=== PATIENT | male | born 1985 | race Two or more races ===

== ENCOUNTER 2025-02-13 12:23 | Outpatient (REF) | payer MEDICAID, SELFPAY ==
[2025-02-13 13:27] LABS: Hematocrit 43.4 % (42.0-52.0); Hemoglobin 14.6 g/dl (14.0-18.0); Mean Corpuscular HGB Conc 33.6 g/dl (31.0-36.0); Mean Corpuscular Hemoglobin 31.7 pg (27.0-33.0); Mean Corpuscular Volume 94.1 fL (80.0-98.0); Mean Platelet Volume 9.3 fL (9.4-12.4); Platelet Count 282 X10*3/uL (160-400); Red Blood Count 4.61 X10*6/uL (4.60-5.80); Red Cell Distribution Width 13.5 % (11.0-16.0); White Blood Count 9.3 X10*3/uL (4.8-10.8)
[2025-02-13 13:39] LABS: Estimated Average Glucose 114 mg/dL; Hemoglobin A1C 141.3339 umol/L; Hemoglobin A1c % 5.6 % (<6.0); Total Hemoglobin (HGBA1C) 3788.7087 umol/L
[2025-02-13 14:32] LABS: Alanine Aminotransferase 39 U/L (0-40); Albumin Level 4.6 g/dL (3.5-5.0); Anion Gap 10 (12-20); Aspartate Amino Transferase 38 U/L (5-37); Bilirubin Direct 0.1 mg/dL (0.0-0.5); Bilirubin Total 0.5 mg/dL (0.0-1.0); Blood Urea Nitrogen 8 mg/dL (9-16); Calcium 9.9 mg/dL (8.4-10.2); Carbon Dioxide 28 mmol/L (22-29); Chloride 105 mmol/L (96-108); Cholesterol 253 mg/dL (<200); Estimated Glomerular Filt Rate > 60; Glucose Random 88 mg/dL (60-115); HDL Cholesterol 48 mg/dL (>40); LDL Cholesterol Calculated 177 mg/dL (<100); Potassium 4.1 mmol/L (3.3-5.1); Sodium 139 mmol/L (135-145); Total Protein 7.9 g/dL (6.5-8.0); Triglycerides 142 mg/dL (<150)
[2025-02-13 14:42] LABS: Free T4 (Free Thyroxine) 0.96 ng/dL (0.71-1.85); Thyroid Stimulating Hormone 1.09 uIU/mL (0.32-4.0); Vitamin D 25-OH Total 14.5 ng/mL (>30)
--- OUTSIDE RECORDS SUMMARY | 2025-02-13 15:11 | XMS_ITS | Clinical Summary ---
Author Organization [facility] Address [address] [place] [address] [place] [address] Care Team Providers Care Collision Technician Name Role Phone Unavailable Primary Care Provider Unavailabl e Allergies No known active allergies Encounters Date Type Department Care Team Description 02/13/2025 10:45 AM EDT Office Visit [facility] [address] [place] [phone] Carlee Cormier DO Routine history and physical examination of adult (Primary Dx); Encounter for immunization 02/13/2025 Travel 02/02/2025 Patient Outreach [facility] [address] [place] [phone] Carlee Cormier DO Pre-visit Planning (SDOH screening negative and tobacco screening negative) 01/12/[address] [facility] ([facility]) Department [address] [place] [address] [phone] Provider, Population Health Generic 12/13/2024 Telephone [facility] [address] [place] [phone] Felice Devlin MD New Patient from Last 3 Months Immunizations Name Administration Dates Next Due Pneumococcal Conjugate PCV 20 02/13/2025 Tdap 03/01/2023,11/09/2021 Family History Medical History Relation Name Comments Old age Maternal Grandfather Diabetes Mother Hypertension Mother No Known Problems Paternal Grandfather Relation Name Status Comments Maternal Grandfather Maternal Grandmother Mother Paternal Grandfather Social History Tobacco Use Types Packs/Day Years Used Date Smoking Tobacco: Every Day Cigarettes Tobacco Cessation:Ready to Q uit: No; Counseling Given: Not Answered Alcohol Use Standard Drinks/Week Comments Never 0 (1 standard drink = 0.6 oz pur e alcohol) Depression Answer Date Recorded Patient Health Questionnaire-9 Score 6 02/13/2025 Patient Health Questionnaire-9 Score 6 02/13/2025 Last PHQ-9: Questionnaire Data Not on file 0 02/13/2025 Housing Stability Answer Date Recorded What is your housing situati on today? I have housing 02/13/[address] you li ve. Do you have problems with any of the following? Mold;No or not working smoke detectors 02/13/2025 Food Insecurity Answer Date Recorded Within the past 12 months, y ou worried that your food would run out before you got money to buy more: Often true 02/13/2025 Within the past 12 months,th e food you bought just didn't last and you didn't have enough money to get more: Often true Transportation Answer Date Recorded In the past 12 months, has l ack of transportation kept you from medical appts, meetings, work or from getting things needed for daily living? No 02/02/2025 Utilities Answer Date Recorded In the past 12 months, has t he electric, gas, oil or water company threatened to shut off services in your home? Yes 02/13/2025 Depression Answer Date Recorded Patient Health Questionnaire-2 Score 1 02/13/2025 Internet Access Answer Date Recorded Internet Access Q1 Yes 02/13/2025 Internet Access Q2 I do not want or need it 01/30 Sex and Gender Information Value Date Recorded Sex Assigned at Male 01/10/2024 11:25 AM EDT Legal Sex Male 11:22 AM EDT Gender Identity Male 01/10/2024 11:25 AM EDT Sexual Orientation Straight 01/10/2024 11 :25 AM EDT Last Filed Vital Signs Vital Sign Reading Time Taken Comments Blood Pressure 138/70 02/13/2025 11:14 AM EDT Pulse 65 02/13/2025 11:14 AM EDT Temperature 37.1 ??C (98.7 ??F) 02/13/2025 11:14 AM E DT Respiratory Rate 19 02/13/2025 11:14 AM EDT Oxygen Saturation 98% 02/13/2025 11:14 AM EDT Inhaled Oxygen Concentration - - Weight 75.4 kg (166 lb 4 oz) 02/13/2025 11:14 AM EDT Height 175.3 cm (5' 9 ) 02/13/2025 11:14 AM EDT Body Mass Index 24.55 02/13/2025 11:14 AM EDT Plan of Treatment Health Maintenance Due Date Last Done Comments HIV Screening 1987 Family Planning (PISQ) 2002 Hepatitis C Screening 2005 Hepatitis B Vaccines (1 of 3 - 19+ 3-dose series) 2006 COVID-19 Vaccine (3 - 2023-2 5 season) 2024 10/29/2021, 10/08/2021 Influenza Vaccine (#1) 2024 Alcohol/Substance Use Screening 02/13/2026 02/13/2025 Depression Screening 02/13/2026 02/13/2025, 02/13/2025 SDOH Screening 02/13/2026 02/13/2025 Tobacco Screening 02/13/2026 02/13/2025 Lipid Panel 02/13/2030 02/13/2025 DTaP/Tdap/Td Vaccines (3 - T d or Tdap) 03/01/2033 03/01/2023, 11/09/2021 Zoster Vaccines (1 of 2) 2037 RSV Patients and Patients Aged 60 years or older (1 - 1-dose 75+ series) 2062 Pneumococcal Vaccine: Pediatrics (0 to 5 Years) and At-Risk Patients (6 to 49) Years) Completed 02/13/2025 HIB Vaccines Aged Out No longer eligi ble based on patient's age to complete this topic HPV Vaccines Aged Out No longer eligi ble based on patient's age to complete this topic Hepatitis A Vaccines Aged Out No long er eligible based on patient's age to complete this topic IPV Vaccines Aged Out No longer eligi ble based on patient's age to complete this topic Meningococcal Vaccine Aged Out No cristian casper eligible based on patient's age to complete this topic RSV under 20 months Aged Out No longe r eligible based on patient's age to complete this topic Rotavirus Vaccines Aged Out No longer eligible based on patient's age to complete this topic Procedures Procedure Name Priority Date/Time Associated Diagnosis Comments BASIC METABOLIC PANEL Routine 02/13/2025 12:26 PM EDT Routine history and physical examination of adult CBC Routine 02/13/2025 12:26 PM EDT Routine history and physical examination of adult HEMOGLOBIN A1C Routine 02/13/2025 12:26 PM EDT Routine history and physical examination of adult HEPATIC FUNCTION PANEL Routine 02/13/2025 12:26 PM EDT Routine history and physical examination of adult VITAMIN D,25-OH,TOTAL,IA Routine 02/13/2025 12:26 PM EDT Routine history and physical examination of adult TSH Routine 02/13/2025 12:26 PM EDT Routine history and physical examination of adult LIPID PANEL, STANDARD Routine 02/13/2025 12:26 PM EDT Routine history and physical examination of adult T4, FREE Routine 02/13/2025 12:26 PM EDT Routine history and physical examination of adult from Last 3 Months Results * (ABNORMAL) CBC (02/13/2025 12:26 PM EDT) White Blood Count 9.3 4.8 - 10.8 X10*3/uL [facility] Red Blood Count 4.61 4.60 - 5.80 X10*6/uL [facility] Hemoglobin 14.6 14.0 - 18.0 g/dl [facility] Hematocrit 43.4 42.0 - 52.0 % [facility] Mean Corpuscular Volume 94.1 80.0 - 98.0 fL [facility] Mean Corpuscular Hemoglobin 31.7 27.0 - 33.0 pg [facility] Mean Corpuscular HGB Conc 33.6 31.0 - 36.0 g/dl [facility] Red Cell Distribution Width 13.5 11.0 - 16.0 % [facility] Platelet Count 282 160 - 400 X10*3/uL [facility] Mean Platelet Volume 9.3(L) 9.4 - 12.4 fL [facility] NRBC Pct Auto 0.0 0.0 - 0.2 /100WBC [facility] NRBC Abs Auto 0.000 0.0 - 0.012 X10*3/uL [facility] Blood Venous blood specimen / Unknown 02/13/2025 12:26 PM EDT 02/13/2025 1:13 PM EDT us Carlee Genia DO LAB BLOOD ORDERABLES Final R esult Performing Organization Address City/[facility]/ZIP Co de Phone Number [facility] [address] [place] [address] [phone] * Hemoglobin A1c (02/13/2025 12:26 PM EDT) Hemoglobin A1c 5.6 <6.0 % [facility] Comment:Hemoglobin A1C Refer ence Range Adults: 4.8 - 6.0 % Non diabetic: < 6.0 % Goal: < 7.0 %Additional Action Suggested: > 8.0 %Note: Hemoglobin A1c results are invalid for patients with abnormal amounts of HbF. Blood transfusions may impact the HbA1c concentration in the patient sample. Estimated Average Glucose 114 mg/dL [facility] Comment:eAG = Estimated ave rage glucose which is %A1C expressed asaverage glucose, using the formula of the F9S-AywyuuxLwthfot Glucose study (ADAG), Diabetes Care, Vol.31,#8,Jun. 2007 Blood Venous blood specimen / Unknown 02/13/2025 12:26 PM EDT 02/13/2025 1:13 PM EDT us Carlee Cormier DO LAB BLOOD ORDERABLES Final R esult Performing Organization Address City/[facility]/ZIP Co de Phone Number [facility] [address] [place] [address] [phone] from Last [address] [place] [address] [employer]
--- OUTSIDE RECORDS SUMMARY | 2025-02-13 15:11 | XMS_ITS | Encounter Summary ---
Author Organization [employer] Address [address] [facility] [address] [place] [address] Care Team Providers Care Country Singer Name Role Phone Unavailable Primary Care Provider Unavailabl e Encounter Details Date Type Department Care Team (Latest Contact Info) Description 02/13/2025 Travel Social History Tobacco Use Types Packs/Day Years Used Date Smoking Tobacco: Every Day Cigarettes Alcohol Use Standard Drinks/Week Comments Never 0 [...] Orientation Straight 01/10/2024 11 :25 AM EDT documented as of this encounter Plan of Treatment Not on file documented as of this encounter Visit Diagnoses Not on filedocumented in this encounter Additional Health Concerns Assessment Noted Time PHQ-9 Depression Total Score: 6 02/14/20 25 1:52 PM EDT documented as of this encounter
--- OUTSIDE RECORDS SUMMARY | 2025-02-13 15:11 | XMS_ITS | Encounter Summary ---
Author Organization [employer] Address [address] [facility] [address] [place] [address] Care Team Providers Care Aged Or Disabled Care Worker Name Role Phone Unavailable Primary Care Provider Unavailabl e Encounter Details Date Type Department Care Team (Late st Contact Info) Description 02/13/2025 10:45 AM EDT Office Visit [facility] [address] [place], [place] [phone] Carlee Cormier DO [address] [place], [place] [phone] Routine history and physical examination of adult (Primary Dx); Encounter for immunization Social History Tobacco Use Types Packs/Day Years [...] AM EDT documented as of this encounter Last Filed Vital Signs Vital Sign Reading [...] Mass Index 24.55 02/13/2025 11:14 AM EDT documented in this encounter Plan of Treatment Pending Results Name Type Priority Associated Diagnoses Date /Time T4, Free Lab Routine Routine history and physical examination of adult 02/13/2025 12:26 PM EDT Lipid Panel, Standard Lab Routine Routine history and physical examination of adult 02/13/2025 12:26 PM EDT TSH Lab Routine Routine history and physical examination of adult 02/13/2025 12:26 PM EDT Vitamin D, 25-Hydroxy, Total, Immunoassay Lab Routine Routine history and physical examination of adult 02/13/2025 12:26 PM EDT Hepatic Function Panel Lab Routine Routine history and physical examination of adult 02/13/2025 12:26 PM EDT Basic Metabolic Panel Lab Routine Routine history and physical examination of adult 02/13/2025 12:26 PM EDT Scheduled Orders Name Type Priority Associated Diagnoses Orde r Schedule Hepatitis B surface antigen, EIA Lab Routine Routine history and physical examination of adult Expected: 02/13/2025 (Approximate), Expires: 02/13/2026 Chlamydia/N. Gonorrhoeae RNA, TMA, Urogenitial Microbiology Routine Routine history and physical examination of adult Ordered: 02/13/2025 HIV-1/2 Antigen and Antibodies, Fourth Generation, with Reflexes Lab Routine Routine history and physical examination of adult Expected: 02/13/2025 (Approximate), Expires: 02/13/2026 Hepatitis C Antibody with Reflex to HCV, RNA, Quantitative, Real-Time PCR Lab Routine Routine history and physical examination of adult Expected: 02/13/2025, Expires: 02/13/2026 RPR (Monitor) with Reflex to??Titer Lab Routine Routine history and physical examination of adult Expected: 02/13/2025, Expires: 02/13/2026 Hepatitis B Surface Antibody, Qualitative Lab Routine Routine history and physical examination of adult Expected: 02/13/2025 (Approximate), Expires: 02/13/2026 Hepatitis A Antibody, Total Lab Routine Routine history and physical examination of adult Expected: 02/13/2025 (Approximate), Expires: 02/13/2026 Hepatitis B Core Antibody, Total Lab Routine Routine history and physical examination of adult Expected: 02/13/2025 (Approximate), Expires: 02/13/2026 documented as of this encounter Procedures Procedure Name Priority Date/Time Associated Diagnosis Comments VITAMIN D,25-OH,TOTAL,IA Routine 02/13/2025 12:26 PM EDT [...] Routine history and physical examination of adult BASIC METABOLIC PANEL Routine 02/13/2025 12:26 PM EDT Routine history and physical examination of adult documented in this encounter Results * (ABNORMAL) CBC (02/13/2025 12:26 PM EDT) White Blood Count 9.3 4.8 - 10.8 X10*3/uL [facility] Red Blood Count 4.61 4.60 - 5.80 X10*6/uL [facility] Hemoglobin 14.6 14.0 - 18.0 g/dl [facility] Hematocrit 43.4 42.0 - 52.0 % [facility] Mean Corpuscular Volume 94.1 80.0 - 98.0 fL [facility] Mean Corpuscular Hemoglobin 31.7 27.0 - 33.0 pg [facility] Mean Corpuscular HGB Conc 33.6 31.0 - 36.0 g/dl [facility] Red Cell Distribution Width 13.5 11.0 - 16.0 % [facility] Platelet Count 282 160 - 400 X10*3/uL [facility] Mean Platelet Volume 9.3(L) 9.4 - 12.4 fL [facility] NRBC Pct Auto 0.0 0.0 - 0.2 /100WBC [facility] NRBC Abs Auto 0.000 0.0 - 0.012 X10*3/uL [facility] Blood Venous blood specimen / Unknown 02/13/2025 12:26 PM EDT 02/13/2025 1:13 PM EDT us Carlee Cormier DO LAB BLOOD ORDERABLES Final R esult [facility] [address] [place] [phone] * Hemoglobin A1c (02/13/2025 12:26 PM EDT) Hemoglobin A1c 5.6 <6.0 % [facility] Comment:Hemoglobin A1C Refer ence Range Adults: 4.8 - 6.0 % Non diabetic: < 6.0 % Goal: < 7.0 %Additional Action Suggested: > 8.0 %Note: Hemoglobin A1c results are invalid for patients with abnormal amounts of HbF. Blood transfusions may impact the HbA1c concentration in the patient sample. Estimated Average Glucose 114 mg/dL [facility] Comment:eAG = Estimated ave rage glucose which is %A1C expressed asaverage glucose, using the formula of the [id number]-QtkpldrXdygqzu Glucose study (ADAG), Diabetes Care, Vol.31,#8,Jun. 2007 Blood Venous blood specimen / Unknown 02/13/2025 12:26 PM EDT 02/13/2025 1:13 PM EDT us Carlee Cormier DO LAB BLOOD ORDERABLES Final R esult [facility] [address] [place] [address] [phone] documented in this encounter Visit Diagnoses Diagnosis Routine history and physical examination of adult- Primary Encounter for immunization documented in this encounter Additional Health Concerns Assessment Noted Time PHQ-9 Depression Total Score: 6 02/14/20 25 1:52 PM EDT documented as of this encounter
--- OUTSIDE RECORDS SUMMARY | 2025-02-13 15:11 | XMS_ITS | Clinical Summary ---
Author Organization [facility] Address [address] [place] [address] Care Team Providers Care Bottom Turner Name Role Phone Unavailable Primary Care Provider Unavailabl e Social History Tobacco Use Types Packs/Day Years Used Date Smoking Tobacco: Never Assessed Sex and Gender Information Value Date Recorded Sex Assigned at Not on file Legal Sex Male 5:19 AM EST Gender Identity Not on file Sexual Orientation Not on file Plan of Treatment Health Maintenance Due Date Last Done Comments Hepatitis B Vaccines (1 of 3 - 19+ 3-dose series) 2006 Cholesterol Screening (Lipid Panel) 10/04/2022 Depression Screening 10/04/2022 HIV Screening 10/04/2022 Hepatitis C Screening 10/04/2022 Social Influencers of Health Screening 10/04/2022 COVID-19 Vaccine ( - 2023-2 5 season) 2024 Influenza Vaccine (Season Ended) 2025 DTaP,Tdap,and Td Vaccines (3 - Td or Tdap) 03/01/2033 03/01/2023, 11/09/2021 HIB Vaccines Aged Out No longer eligi [...] on patient's age to complete this topic MMR Vaccines Aged Out No longer eligi ble based on patient's age to complete this topic Meningococcal ACWY Vaccine Aged Out N o longer eligible based on patient's age to complete this topic Meningococcal B Vaccine Aged Out No l onger eligible based on patient's age to complete this topic Pneumococcal Vaccine: Pediatrics (0 to 5 Years) and At-Risk Patients (6 to 64 Years) Aged Out No longer eligible b ased on patient's age to complete this topic RSV Immunization Patients Under 20 months Aged Out No longer eligible b ased on patient's age to complete this topic Varicella Vaccines Aged Out No longer eligible based on patient's age to complete this topic
[2025-02-13 15:35] LABS: CT PCR NOT DETECTED (Not Detect.); NG PCR NOT DETECTED (Not Detect.)
[2025-02-13 17:32] LABS: Alkaline Phosphatase 66 U/L (39-117)
[2025-02-14 08:11] LABS: HBS Num1 2.34 mIU/mL (0-7.99); HBc Num1 0.07 S/CO (0.00-0.79); HIV AB/AG Nonreactive (Nonreactive); HIV Num 1 0.06 S/CO (0.00-0.99); Hepatitis B Core Antibody Nonreactive (Nonreactive); Hepatitis B Surface Antigen Negative (Negative); ~HepC Num1 0.15 S/CO (0.00-0.79); ~Hepatitis B Surface Antibody NONREACTIVE (Nonreactive); ~Hepatitis C Antibody Nonreactive (Nonreactive)
[2025-02-14 09:54] LABS: RPR Rapid Plasma Reagin NON-REACTIVE (NON-REACTIVE)
[2025-02-15 08:58] LABS: Hepatitis A Antibody IgG Nonreactive (Nonreactive); ~Hepatitis A Antibody IgG 0.34 S/CO (0.00-0.99)
== END 2025-02-13 12:24 | disposition home or self-care (01) ==
LOC: HO.HHCL 12:23
PROVIDERS: Visit Provider Family Medicine
DX: Z00.00 Encounter for general adult medical examination without abnormal findings (principal)
CPT/HCPCS: 80048; 80061; 80076; 82306; 83036; 84439; 84443; 85027; 86592; 86704; 86706; 86708; 86803; 87340; 87389; 87491; 87591